=== PATIENT | male | born 1990 | race Caucasian/White ===

== ENCOUNTER 2016-10-01 20:01 | Emergency (ER) | payer MEDICAID ==
[~2016-10-01] VITALS: Ht 172.7 cm; Wt 95.2 kg
[2016-10-01 20:27] VITALS: BP 154/122
== END 2016-10-01 21:20 | disposition home or self-care (01) ==
LOC: ED 20:01
DX: Z76.0 Encounter for issue of repeat prescription (principal); N41.9 Inflammatory disease of prostate, unspecified